=== PATIENT | male | born 1970 | race Two or more races ===

== ENCOUNTER 2023-04-05 15:15 | Emergency (ER) | payer SELFPAY ==
[~2023-04-05] VITALS: Ht 172.7 cm; Wt 68.1 kg
[2023-04-05] MEDS ORDERED: HYDROcodone-ACET 10/325MG TAB PO ONE (15:45)
[2023-04-05] MEDS ORDERED: TETANUS-DIPTH-ACEL PERTUSSIS 0.5ML SYR Tdap IM ONE (15:45)
[2023-04-05] MEDS ORDERED: LIDOCAINE 1% (LOCAL ANESTH.) PF 5ml SDV ID ONE (16:30)
[2023-04-05] MEDS ORDERED: LIDOCAINE 1%HCL (LOCAL ANESTH) 10 ML MDV ID ONE (16:50)
[2023-04-05] MEDS ORDERED: BACDST PO (17:44)
[2023-04-05] MEDS ORDERED: HYDR-4072 PO (17:44)
[2023-04-05] MEDS ORDERED: CEPH250C PO (17:44)
[2023-04-05] MEDS ORDERED: NAPR-1334 PO (17:44)
[2023-04-05 18:19] VITALS: BP 157/101; TEMP 98.4
[2023-04-05 18:33] VITALS: PULSE 78; RESP 16; O2SAT 98
== END 2023-04-05 19:12 | disposition home or self-care (01) ==
LOC: ER 15:15
DX: S68.126A Partial traumatic metacarpophalangeal amputation of right little finger, initial encounter (principal); Z79.899 Other long term (current) drug therapy; W22.8XXA Striking against or struck by other objects, initial encounter; Y93.89 Activity, other specified; Y92.89 Other specified places as the place of occurrence of the external cause; Y99.8 Other external cause status
CPT/HCPCS: 12002; 73130